=== PATIENT | male | born 1990 | race Caucasian/White ===

== ENCOUNTER → 2024-07-31 13:59 | Outpatient (REF) | payer OTHER, SELFPAY | LOC: RAD 13:59 | PROVIDERS: ATTENDING PHYSICIAN Family Medicine | DX: R41.89 Other symptoms and signs involving cognitive functions and awareness (principal) | CPT/HCPCS: 70470; Q9967 ==

== ENCOUNTER → 2024-08-19 09:17 | Outpatient (REF) | payer OTHER, SELFPAY | LOC: MRI 09:17 | PROVIDERS: ATTENDING PHYSICIAN Anesthesiology; FAMILY PHYSICIAN Family Medicine | DX: M54.16 Radiculopathy, lumbar region (principal) | CPT/HCPCS: 72148 ==